=== PATIENT | female | born 1985 ===

== ENCOUNTER → 2023-11-03 | Outpatient (CLI) | payer OTHER ==
[2023-11-03 15:48] LABS: Bacterial Vaginosis PCR Negative (NEGATIVE); Candida Group, PCR NOT DETECTED (NOT DETECT); Candida glabrata-krusei, PCR NOT DETECTED (NOT DETECT)
[2023-11-06 06:02] LABS: APTIMA MEDIA TYPE Unisex Swab; C. TRACHOMATIS BY TMA Negative (Negative); N. GONORRHOEAE BY TMA Negative (Negative); SPECIMEN SOURCE Cervical
== END ==
LOC: LAB 12:41 → LAB SHORT 12:41
PROVIDERS: Chiropractor
DX: Z72.51 High risk heterosexual behavior (principal); R30.0 Dysuria
CPT/HCPCS: 87086; 87481; 87491; 87591; 87661; 87801